=== PATIENT | female | born 1990 | race Caucasian/White ===

== ENCOUNTER 2018-05-01 | Day surgery (SDC) | payer BC ==
[~2018-05-01] VITALS: Ht 157.5 cm; Wt 83.9 kg
[~2018-05-01] MED LIST: BUPR-474 PO; FEXO-72 PO
[2018-05-01 06:26] VITALS: BP 121/71
[2018-05-01] MEDS ORDERED: LIDOCAINE/SOD BICARB 8.4% SYR ID ONE (06:30)
[2018-05-01] MEDS ORDERED: NORMOSOL R SOLN(*) 1000 ML BAG 1,000 ML IV PRN (06:30)
[2018-05-01] MEDS ORDERED: PROPOFOL EMUL(*) 10MG/ML 20 ML 60 ML ONE (07:31)
[2018-05-01 07:49] VITALS: BP 108/52
--- NOTE | 2018-05-01 07:49 | NUR ---
0749- PT ARRIVED VIA CART TO [place] [facility], PT IN LL POSITION, PT NOTED TO HAVE SNORING RESPIRATIONS, PT UNRESPONSIVE AT THIS TIME, WILL CONTINUE TO MONITOR, PT HAS OXY MASK IN PLACE AT 6LPM, MAINTAINING SATS, RESPIRATIONS AND AIRWAY, VSS, SBAR REPORT FROM Nay MALONEY RN AND 0750- DECREASED O2 TO 5LPM VIA OXY MASK 0755- PT REMAINS ASLEEP IN LL POSITION, SNORING RESPIRATIONS NOTED.
--- NOTE | 2018-05-01 07:53 | Short(Outpt) Discharge Summary ---
Discharge Summary Reason for Hosp/Final Diag: (1) Family history of colon cancer in mother Hospital Course & Plan: Colonoscopy completed without any problems, normal, recommend 5 years for next colonoscopy. (2) Family history of malignant neoplasm of colon in first degree relative diagnosed when younger than 60 years of age Departure Discharge to: Home, Self Care Discharge Instructions Home Meds Reported Medications Bupropion Hcl (WELLBUTRIN XL) 300 Mg Tab.er.24h, 300 MG PO QDAY, TAB 04/22/18 Fexofenadine Hcl (FÉLIX ALLERGY) Unknown Strength Tablet, PO PRN 03/04/18 Diet: Regular Activity: As Tolerated Special Instructions: Your colonoscopy was completed without any problems and your prep was excellent (Good Job!!). It was completely normal. No polyps, cancers, or other abnormalities. I recommend that your next colonoscopy be in 5 years due to your family history. MAIK NEAL MD May 01, 2018 07:53
--- NOTE | 2018-05-01 07:57 | NUR ---
0757- PT AWAKE, DROWSY, REPOSITIONED ON BACK AND SF POSITION
[2018-05-01 08:00] VITALS: BP 107/68
--- NOTE | 2018-05-01 08:05 | NUR ---
0805- PT TOLERATING WATER
[2018-05-01 08:15] VITALS: BP 108/68
--- NOTE | 2018-05-01 08:17 | NUR ---
0815- REVIEWED D/C INSTRUCTIONS WITH PT AND
[2018-05-01 08:20] VITALS: BP 112/79
[2018-05-01 08:23] VITALS: BP 118/80
--- NOTE | 2018-05-01 08:26 | NUR ---
0826- D/C IV WITH CATH INTACT, PRESSURE DRESSING APPLIED WITH GAUZE AND COBAND 0829- PT AMBULATORY TO RESTROOM, STEADY GAIT NOTED, PT REPORTS VOID X 1 WITHOUT ISSUE, PT GETTING DRESSED 0830- PT DRESSED AND WAS WALKED TO [facility] ACCOMPANIED BY Riya MOSLEY RN AND
== END 2018-05-01 08:30 | disposition home or self-care (01) ==
LOC: OR
PROVIDERS: ATTEND Surgery
DX: Z12.11 Encounter for screening for malignant neoplasm of colon (principal); Z80.0 Family history of malignant neoplasm of digestive organs
CPT/HCPCS: 00812; 45378; 81025; J2704